=== PATIENT | male | born 1965 | race Caucasian/White ===

== ENCOUNTER 2021-08-05 19:57 | Observation (INO) ==
[2021-08-05] MEDS ORDERED: ASPIRIN 325 MG TABLET PO STA (20:14)
[2021-08-05 20:22] LABS: Basophils % 0.2 % (0.0-0.8); Eosinophils # 0.1 10*3/uL (0.0-0.87); Eosinophils % 0.5 % (0.00-10.9); Hematocrit 40.1 VOL% (42.0-52.0); Hemoglobin 13.6 GM/DL (14.0-18.0); Immature Granulocytes % 0.4 %; Immature Granulocytes Absolute 0.05 #; Lymphocytes # 2.9 10*3/uL (1.4-4.0); Lymphocytes % 22.6 % (21.2-54.2); Mean Corpuscular HGB Conc 33.9 GM/DL (32-36); Mean Corpuscular Volume 86.2 FL (87-102); Mean Platelet Volume 9.4 FL (9.6-12.0); Monocytes # 0.8 10*3/uL (0.11-0.8); Monocytes % 6.4 % (1.7-12.7); Neutrophils % 69.9 % (38.7-73.9); Platelet Count 206 T/CUMM (130-400); Red Blood Count 4.65 MC/CUMM (3.8-5.5); Red Cell Distribution Width 12.4 % (9.3-17.3); White Blood Count 12.8 T/CUMM (4-12)
[2021-08-05 20:42] LABS: PT Patient Result 10.9 SECS (10.5-12.0); Partial Thromboplastin Time 27.3 SECS (23.8-32.1)
[2021-08-05 20:53] LABS: Albumin 3.8 G/DL (3.4-5.0); Bilirubin,Total 0.5 MG/DL (0.20-1.00); Calcium 8.9 MG/DL (8.5-10.1); Osmolality,Calculated 262.5 MOS/KG (273-304); Potassium 3.5 MMOL/L (3.5-5.1); Total Protein 7.3 G/DL (6.4-8.2)
[2021-08-05] MEDS ORDERED: GLUCAGON 1 MG VIAL IM PRN (22:14)
[2021-08-05] MEDS ORDERED: ONDANSETRON 4 MG/2 ML VIAL IV PRN (22:14)
[2021-08-05] MEDS ORDERED: ACETAMINOPHEN 325 MG TABLET PO PRN (22:14)
[2021-08-05] MEDS ORDERED: NITROGLYCERIN SL 0.4 MG TABLET SL PRN (22:14)
[2021-08-05] MEDS ORDERED: DEXTROSE 10% 250 ML BAG IV PRN (22:21)
[2021-08-05] MEDS ORDERED: HydrOXYzine PAMOATE 25 MG CAPSULE PO PRN (22:22)
[2021-08-05] MEDS ORDERED: THIAMINE INJ 100 MG, FOLIC ACID INJ 1 MG, MULTIVITAMIN INJ 10 ML in SODIUM CHLORIDE 0.9... IV ONE (23:00)
[2021-08-05] MEDS: SODIUM CHLORIDE 0.9% 1,000 ML IV SCH (23:45)
[2021-08-06 00:05] LABS: Mucus,Urine Occasional /LPF (Occasional); RBC,Urine <1 /HPF (0-4)
[2021-08-06 00:06] LABS: Urine Appearance Clear (Clear); Urine Color Yellow (Yellow)
[2021-08-06 00:07] LABS: Bilirubin,Urine Negative (Negative); Blood, Urine Negative (Negative); Glucose,Urine (UA) Negative (Negative); Ketones,Urine Negative (Negative); Nitrite,Urine Negative (Negative); Protein,Urine Negative (Negative); Urine Specific Gravity <= 1.005 (1.001-1.035); Urine Urobilinogen 0.2 eU/dL (<2.0)
[2021-08-06 00:53] LABS: Barbiturates Screen,Urine Negative (Negative); Benzodiazepines Screen,Urine Negative (Negative); Cannabinoid Screen,Urine Negative (Negative); Opiate Screen,Urine Negative (Negative); Phencyclidine Screen,Urine Negative (Negative)
[2021-08-06 03:14] LABS: PT Patient Result 10.8 SECS (10.5-12.0); Partial Thromboplastin Time 29.2 SECS (23.8-32.1)
[2021-08-06 03:24] LABS: Calcium 8.5 MG/DL (8.5-10.1); Osmolality,Calculated 274.5 MOS/KG (273-304); Potassium 4.2 MMOL/L (3.5-5.1); Risk Ratio 3.97
[2021-08-06 08:22] LABS: Basophils % 0.2 % (0.0-0.8); Eosinophils # 0.3 10*3/uL (0.0-0.87); Eosinophils % 3.1 % (0.00-10.9); Hematocrit 42.9 VOL% (42.0-52.0); Hemoglobin 14.1 GM/DL (14.0-18.0); Immature Granulocytes % 0.2 %; Immature Granulocytes Absolute 0.02 #; Lymphocytes # 3.3 10*3/uL (1.4-4.0); Lymphocytes % 37.5 % (21.2-54.2); Mean Corpuscular HGB Conc 32.9 GM/DL (32-36); Mean Corpuscular Volume 88.8 FL (87-102); Mean Platelet Volume 10.2 FL (9.6-12.0); Monocytes # 0.6 10*3/uL (0.11-0.8); Monocytes % 7.3 % (1.7-12.7); Neutrophils % 51.7 % (38.7-73.9); Platelet Count 214 T/CUMM (130-400); Red Blood Count 4.83 MC/CUMM (3.8-5.5); Red Cell Distribution Width 12.5 % (9.3-17.3); White Blood Count 8.8 T/CUMM (4-12)
[2021-08-06] MEDS ORDERED: EZETIMIBE 10 MG TABLET PO SCH (09:00)
[2021-08-06] MEDS ORDERED: CLOPIDOGREL 75 MG TABLET PO SCH (09:00)
[2021-08-06] MEDS ORDERED: PANTOPRAZOLE 40 MG TABLET PO SCH (09:00)
[2021-08-06] MEDS ORDERED: METOPROLOL SUCCINATE XL 25 MG TABLET PO SCH (09:00)
[2021-08-06] MEDS ORDERED: ATORVASTATIN 80 MG TABLET PO SCH (09:00)
[2021-08-06] MEDS ORDERED: ASPIRIN EC 325 MG TABLET PO SCH (09:00)
[2021-08-06] MEDS: SODIUM CHLORIDE 0.9% 1,000 ML IV SCH (09:23)
[2021-08-06] MEDS ORDERED: AZITHROMYCIN 250 MG TABLET PO ONE (11:34)
[2021-08-06] MEDS ORDERED: METOPROLOL SUCCINATE XL 25 MG TABLET PO ONE (11:35)
[2021-08-06 12:40] VITALS: BP 140/86
[2021-08-06] MEDS ORDERED: predniSONE 20 MG TABLET PO SCH (13:00)
[2021-08-06] MEDS ORDERED: ALBUTEROL/IPRATROPIUM 3 ML NEB RESP TX SCH (15:00)
[2021-08-07] MEDS ORDERED: AZITHROMYCIN 250 MG TABLET PO SCH (09:00)
[2021-08-07] MEDS ORDERED: METOPROLOL SUCCINATE XL 50 MG TABLET PO SCH (09:00)
== END 2021-08-06 13:25 | disposition home or self-care (01) ==
LOC: N.ED 19:57 → N.EDINP 19:57 → N.TELEN 23:39
PROVIDERS: ADMIT Internal Medicine; ATTEND Internal Medicine